=== PATIENT | female | born 1965 | race Two or more races ===

== ENCOUNTER 2018-11-06 20:46 | Emergency (ER) | payer SELFPAY ==
[~2018-11-06] VITALS: Ht 152.4 cm; Wt 60.3 kg
[2018-11-06 23:40] VITALS: BP 121/71
== END 2018-11-06 23:40 | disposition home or self-care (01) ==
LOC: ED 20:46
DX: R00.2 Palpitations (principal); I10 Essential (primary) hypertension; E11.9 Type 2 diabetes mellitus without complications; E78.00 Pure hypercholesterolemia, unspecified
CPT/HCPCS: 36415; 82962; Q0092